=== PATIENT | male | born 1940 | race Caucasian/White ===

== ENCOUNTER → 2017-01-26 | Outpatient (CLI) | payer MEDICARE ==
[~2017-01-26] MED LIST: ALLO100T30 PO; CHOL100012 PO; CIPR500T87 PO; FEBU40TA PO; HYDR-3240 PO; HYDR12.58 PO; IBUP-1223 PO; LISI-170 PO; LISI40TA PO; METO-93 PO; ONDA4TAB7 PO; SIMV10TA3 PO; SIMV80TA3 PO; TAMS-11 PO; TAMS0.4C2 PO
[2017-01-26 11:11] LABS: ASPARTATE AMINO TRANSFERASE 19 U/L (15-37); BLOOD UREA NITROGEN 20 mg/dL (7-18)
== END | disposition home or self-care (01) ==
LOC: STAR 09:49
PROVIDERS: ATTEND Surgery
DX: Z01.818 Encounter for other preprocedural examination (principal)
CPT/HCPCS: 36415; 80053; 93005

== ENCOUNTER 2017-02-02 06:27 | Day surgery (SDC) | payer MEDICARE ==
[~2017-02-02] VITALS: Ht 172.7 cm; Wt 70.4 kg
[2017-02-02] MEDS ORDERED: LACTATED RINGERS 1,000 ML IV SCH (06:59)
[2017-02-02] MEDS ORDERED: EPINEPHRINE 1 MG/ML, 1ML ONE (07:04)
[2017-02-02] MEDS ORDERED: BUPIVACAINE/PF 0.5% ONE (07:04)
[2017-02-02 07:22] VITALS: BP 132/77
[2017-02-02] MEDS ORDERED: PROPOFOL 10 MG/ML, 20ML ONE (08:02)
[2017-02-02] MEDS ORDERED: ONDANSETRON 2MG/ML, 2ML ONE ×2 (08:02→08:13)
[2017-02-02] MEDS ORDERED: ROCURONIUM 10 MG/ML,10ML ONE (08:02)
[2017-02-02] MEDS ORDERED: FENTANYL PF 100 MCG/2ML ONE (08:02)
[2017-02-02] MEDS ORDERED: SUCCINYLCHOLINE 20 MG/ML, 10ML ONE (08:02)
[2017-02-02] MEDS ORDERED: MIDAZOLAM 1 MG/ML, 2ML ONE (08:02)
[2017-02-02] MEDS ORDERED: DEXAMETHASONE 4 MG/ML, 1ML ONE ×2 (08:03→08:13)
[2017-02-02] MEDS ORDERED: CEFAZOLIN 1,000 MG ONE ×2 (08:12→08:13)
[2017-02-02] MEDS ORDERED: PHENYLEPHRINE 10 MG/ML ONE (08:14)
[2017-02-02] MEDS ORDERED: HYDROmorphone 1 MG/ML, 1ML IV PRN (08:30)
[2017-02-02] MEDS ORDERED: PROMETHAZINE 25 MG/ML, 1ML IV PRN (08:30)
[2017-02-02] MEDS ORDERED: ACETAMINOPHEN 325 MG TABLET PO PRN (08:30)
[2017-02-02] MEDS ORDERED: LABETALOL 5MG/ML, 20ML IV PRN (08:30)
[2017-02-02] MEDS ORDERED: ONDANSETRON 2MG/ML, 2ML IVPush PRN (08:30)
[2017-02-02] MEDS ORDERED: OXYcodone 5 MG/5 ML ORAL.SOL UDC PO PRN (08:30)
[2017-02-02] MEDS ORDERED: hydrALAzine 20 MG/ML, 1ML IV PRN (08:30)
[2017-02-02] MEDS ORDERED: MEPERIDINE/PF 25MG/0.5ML IVPush PRN (08:30)
[2017-02-02] MEDS ORDERED: ALBUTEROL SULFATE 2.5 MG/3 ML NPPB PRN (08:30)
[2017-02-02] MEDS ORDERED: FENTANYL PF 100 MCG/2ML IV PRN (08:30)
[2017-02-02] MEDS ORDERED: MIDAZOLAM 1 MG/ML, 2ML IV PRN (08:30)
[2017-02-02] MEDS ORDERED: EPHEDRINE 50 MG/ML, 1ML ONE ×2 (08:34)
[2017-02-02] MEDS ORDERED: OXYcodone 5 MG/5 ML ORAL.SOL UDC ONE (09:10)
[2017-02-02] MEDS ORDERED: ACETAMINOPHEN 650 MG/20.3 ML UDC ONE (09:11)
== END 2017-02-02 11:50 ==
LOC: OUT 06:27
PROVIDERS: ATTEND Surgery
DX: K40.90 Unilateral inguinal hernia, without obstruction or gangrene, not specified as recurrent (principal); I10 Essential (primary) hypertension; E78.5 Hyperlipidemia, unspecified; M10.9 Gout, unspecified; N40.0 Benign prostatic hyperplasia without lower urinary tract symptoms; Z87.891 Personal history of nicotine dependence; Z87.39 Personal history of other diseases of the musculoskeletal system and connective tissue; Z88.0 Allergy status to penicillin
CPT/HCPCS: 49505; C1781; J0171; J0330; J0690; J1100; J2250; J2370; J2405; J2704; J3010; J3490; J7120